=== PATIENT | male | born 1985 | race Caucasian/White ===

== ENCOUNTER 2016-10-28 21:32 | Emergency (ER) | payer OTHER ==
[~2016-10-28] VITALS: Ht 172.7 cm; Wt 63.5 kg
[~2016-10-28 21:32] MED LIST: CLEOCIN150 MG PO; LORTAB 5-325 M1 EACH; REMERON; ZOFRANODT PO
== END 2016-10-28 23:05 | disposition home or self-care (01) ==
LOC: SED 21:32
DX: L03.115 Cellulitis of right lower limb (principal); L03.031 Cellulitis of right toe; F17.210 Nicotine dependence, cigarettes, uncomplicated; Z88.8 Allergy status to other drugs, medicaments and biological substances; Z98.890 Other specified postprocedural states
CPT/HCPCS: 99283